=== PATIENT | female | born 1960 | race Caucasian/White ===

== ENCOUNTER 2016-06-09 18:38 | Emergency (ER) | payer OTHER ==
[~2016-06-09] VITALS: Ht 167.6 cm; Wt 74.8 kg
[~2016-06-09 18:38] MED LIST: ALBUTEROL 3 ML3 ML INH; ATIVAN0.5 MG PO; ATIVAN1 MG PO; BUSPAR5 MG PO; BUSPIRONE HCL15 MG PO; BUSPIRONE10 MG PO; CHLORDIAZEPOXID25 M2 PO; CHLORDIAZEPOXID25 MG PO; DOXEPIN 25 MG; DOXEPIN25 MG PO; LAMICTAL100 M1 PO; LAMICTAL150 MG PO; LAMICTAL200 MG PO; LIBRIUM25 MG PO; LORAZEPAM0.5 MG PO; MAGNESIUM250 M1 PO; MULTIVITAMIN1 TAB PO; NALTREXONE HCL50 MG; NALTREXONE HYDR50 MG PO; SEROQUEL 100MG100 MG PO; SEROQUEL 25MG25 MG PO; SEROQUEL50 MG PO; SIMVASTATIN10 MG PO; SIMVASTATIN20 MG PO; VITAMIN B121000 MCG PO
[2016-06-09 18:58] VITALS: BP 123/81
--- NOTE | 2016-06-09 19:41 | ED PSYCHIATRIC COMPLAINT ---
History of Present Illness General Chief Complaint: ETOH/Drug Related Complaint Stated Complaint: PT NEEDS DETOX FROM ALCOHOL Source: patient, old records Exam Limitations: no limitations Vital Signs & Intake/Output Vital Signs & Intake/Output Vital Signs Date Time Temp Pulse Resp B/P Pulse O2 O2 Flow FiO2 Ox Delivery Rate 06/09 1916 Room Air 06/09 1858 97.0 93 18 123/81 98 Room Air ED Intake and Output 06/10 0000 06/09 1200 Intake Total Output Total Balance Patient 165 lb Weight Allergies Coded Allergies: NO KNOWN ALLERGIES (02/09/14) Reconcile Medications BUSPIRONE HCL (Buspirone HCl) 5 MG TABLET 30 MG PO BID MENTAL HEALTH ( Reported) Chlordiazepoxide HCl 25 MG CAPSULE 0 PO SEE ADMIN CRITERIA PRN anxiety 1-2 tabs 3 times a day for 2 days 1-2 tabs 2 times a day for 2 days 1-2 tabs 1 time a day for 2 days DOXEPIN HCL (Doxepin HCl) 25 MG CAPSULE 2 CAP PO AT BEDTIME SLEEP (Reported) Lamotrigine (Lamictal) 150 MG TAB 1 TAB PO BID UNKNOWN (Reported) Lorazepam (Ativan) 0.5 MG TAB 1 TAB PO PRN ANXIETY (Reported) Lorazepam (Ativan) 1 MG TAB 1 TAB PO BID PRN ANXIETY TEN TABS... [id number] Lorazepam (Ativan) 1 MG TAB 1 TAB PO BID PRN ANXIETY Quetiapine Fumarate (Seroquel) 100 MG TAB 1 TAB PO QPM MENTAL HEALTH ( Reported) Triage Note: PT STATSE SHE HAS BEEN DRINKING AND SHE WOULD LIKE TO GET HER LIFE TOGETHER. PT STATES HER THERAPYST TOOK HER OFF ALL OF HER MEDS ALL AT ONCE AND SHE IS HAVING TROUBLE DEALING WITH EVERYTHING. PT REPORTS TRYING TO GET INTO PLACED FOR DETOX. PT WAS TAKEN OFF HER ATIVAN. Triage Nurses Notes Reviewed? yes Onset: Last week Duration: day(s):, constant, continues in ED, getting worse Timing: recent history Severity: moderate Associated Symptoms: anxiety, impaired concentration, insomnia LMP (ages 10-50): post menopausal : No Patient currently breastfeeds: No HPI: Patient reports increased stressors her significant other's illness and surgery over the last month causing her to abuse alcohol and missed therapist appointments so Ativan prescription refilled. She presents for alcohol detox. She denies fever chills nausea vomiting diarrhea abdominal pain chest pain shortness breath headache dysuria rash bleeding suicidal ideation homicidal ideation hallucination. Past History Travel History Traveled to [place] past 21 day No Medical History Any Pertinent Medical History? 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 No Review of Systems Review of Systems Constitutional: Reports: no symptoms. EENTM: Reports: no symptoms. Respiratory: Reports: no symptoms. Cardiovascular: Reports: no symptoms. GI: Reports: no symptoms. Genitourinary: Reports: no symptoms. Musculoskeletal: Reports: no symptoms. Skin: Reports: no symptoms. Neurological/Psychological: Reports: see HPI, anxiety, confusion, depressed, emotional problems. Hematologic/Endocrine: Reports: no symptoms. Immunologic/Allergic: Reports: no symptoms. All Other Systems: Reviewed and Negative Physical Exam Physical Exam General Appearance: well developed/nourished, mild distress Head: atraumatic Eyes: Bilateral: PERRL, EOMI. 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 patient not suicidal Progress Differential Diagnosis: drug intoxication, drug overdose, drug withdrawal, electrolyte abnormality, hypoglycemia Plan of Care: Orders Procedure Date/time Status URINE DRUG SCREEN FOR ER ONLY 06/09 1899 Complete Laboratory Tests 06/09/161909: Urine Opiates Screen < 100.00, Methadone Screen < 40, Barbiturate Screen < 60, Ur Phencyclidine Scrn < 6.00, Amphetamines Screen < 100, U Benzodiazepines Scrn < 85, Urine Cocaine Screen < 50, Urine Cannabis Screen < 5.00 Comments: After eating patient decided she does not want detox but needs to be home caring for her significant other. Departure Departure Time of Disposition: 1940 Disposition: HOME OR SELF CARE Condition: Stable Clinical Impression Primary Impression: Alcohol abuse Referrals: PATIENT HAS NO PRIMARY CARE DR (PCP/Family) Departure Forms: Customer Survey General Discharge Information Prescriptions: Current Visit Scripts Chlordiazepoxide HCl 0 PO SEE ADMIN CRITERIA PRN anxiety #24 CAP 1-2 tabs 3 times a day for 2 days 1-2 tabs 2 times a day for 2 days 1-2 tabs 1 time a day for 2 days
[2016-06-09] MEDS ORDERED: CHLORDIAZEPOXID25 M3 PO (19:43)
== END 2016-06-09 20:04 ==
LOC: ERH 18:38
DX: F10.10 Alcohol abuse, uncomplicated (principal)
CPT/HCPCS: 80307

== ENCOUNTER 2017-07-19 23:29 | Emergency (ER) | payer OTHER ==
[~2017-07-19] VITALS: Ht 167.6 cm; Wt 51.7 kg
[~2017-07-19 23:29] MED LIST changes: +ATIVAN1 M1 PO; +ATORVASTATIN CA40 M1 PO; +CHLORDIAZEPOXID25 M3 PO; +DOXYCYCLINE HY100 M2 PO; +HYDROCHLOROTH12.5 M2 PO; +LAMICTAL100 M2 PO; +LAMICTAL150 M1 PO; +NEURONTIN300 M1 PO; +QUETIAPINE FUMA25 M1 PO; +SEROQUEL50 M1 PO
--- NOTE | 2017-07-20 | ED PSYCHIATRIC COMPLAINT ---
History of Present Illness General Chief Complaint: ETOH/Drug Related Complaint Stated Complaint: BIBA ETOH Source: patient, old records, EMS Exam Limitations: no limitations Vital Signs & Intake/Output Vital Signs & Intake/Output Vital Signs Date Time Temp Pulse Resp B/P B/P Pulse O2 O2 Flow FiO2 Mean Ox Delivery Rate 07/20 0405 98.4 88 16 98/52 05/ 0405 98.4 88 16 98/52 94 Room Air / 0200 98.4 89 16 99/52 05/ 0200 98.4 89 16 98/50 95 Room Air / 0000 97.9 83 18 103/67 05/ 2341 97.9 83 18 103/67 97 ED Intake and Output 07/20 0000 07/19 1200 Intake Total Output Total Balance Patient 114 lb Weight Allergies Coded Allergies: NO KNOWN ALLERGIES (02/09/14) Reconcile Medications Atorvastatin Calcium 40 MG TABLET 1 TAB PO DAILY CHOLESTEROL (Reported) Gabapentin (Neurontin) 300 MG CAPSULE 1 CAP PO TID craving/etoh Hydrochlorothiazide 12.5 MG TABLET 1 TAB PO DAILY HTN (Reported) Lamotrigine (Lamictal) 100 MG TABLET 1 TAB PO BID mental health LORazepam (Ativan) 1 MG TAB 1 TAB PO QPM PRN ANXIETY LORazepam (Ativan) 1 MG TAB 1 TAB PO Q8PRN ANXIETY LORazepam (Ativan) 1 MG TAB 1 TAB PO BID PRN alcohol withdrawal Triage Nurses Notes Reviewed? yes Onset: Just prior to arrival Duration: constant, continues in ED Timing: recent history Severity: moderate Associated Symptoms: anxiety, impaired concentration LMP (ages 10-50): post menopausal : No Patient currently breastfeeds: No HPI: Patient presents for help with alcohol detox. She denies fever chills nausea vomiting diarrhea abdominal pain chest pain shortness breath headache dysuria rash bleeding suicidal ideation homicidal ideation hallucination. Past History Travel History Traveled to [place] past 21 day No Medical History Any Pertinent Medical History? 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 No Review of Systems Review of Systems Constitutional: Reports: no symptoms. EENTM: Reports: no symptoms. Respiratory: Reports: no symptoms. Cardiovascular: Reports: no symptoms. GI: Reports: no symptoms. Genitourinary: Reports: no symptoms. Musculoskeletal: Reports: no symptoms. Skin: Reports: no symptoms. Neurological/Psychological: Reports: see HPI, anxiety, confusion, emotional problems. Hematologic/Endocrine: Reports: no symptoms. Immunologic/Allergic: Reports: no symptoms. All Other Systems: Reviewed and Negative Physical Exam Physical Exam General Appearance: well developed/nourished, mild distress Head: atraumatic Eyes: Bilateral: PERRL, EOMI. Ears, Nose, Throat: normal pharynx, normal ENT inspection, hearing grossly normal Neck: normal inspection, supple Respiratory: normal breath sounds Cardiovascular: regular rate/rhythm Gastrointestinal: soft, non-tender Extremities: normal range of motion Neurological/Psychiatric: no motor/sensory deficits, awake, agitated, alert, normal mood/affect, anxious Appearance/Memory/Insight: appropriate appearance, appropriate insight, denies illness Behavoir/Eye Contact/Speech: cooperative, increased rate of speech Thoughts/Hallucinations: no apparent hallucination Skin: intact, normal color, warm/dry SAD PERSONS Done? patient not suicidal Progress Differential Diagnosis: drug intoxication, drug overdose, drug withdrawal, electrolyte abnormality, hypoglycemia Plan of Care: Orders Procedure Date/time Status Regular Diet 07/20 B Active CIWA 07/19 2350 Active URINE DRUG SCREEN FOR ER ONLY 07/19 2350 Complete ETHANOL 07/19 2350 Complete COMPREHENSIVE METABOLIC PANEL 07/19 2350 Complete CBC WITHOUT DIFFERENTIAL 07/19 2350 Complete Laboratory Tests 07/20/17 0010: Anion Gap 16, Estimated GFR > 60, BUN/Creatinine Ratio 17.1, Glucose 98, Calcium 9.6, Total Bilirubin 0.6, AST 45 H, ALT 69 H, Alkaline Phosphatase 107, Total Protein 7.7, Albumin 4.5, Globulin 3.2, Albumin/Globulin Ratio 1.4, CBC w Diff MAN DIFF ORDERED, RBC 4.39, MCV 99.0, MCH 35.1 H, MCHC 35.5, RDW 13.0, MPV 8.4, Gran % 60.0, Lymphocytes % 31.5, Monocytes % 6.2, Eosinophils % 1.6, Basophils % 0.7, Absolute Granulocytes 6.7 H, Segmented Neutrophils 57, Band Neutrophils 3, Absolute Lymphocytes 3.5 H, Lymphocytes 36, Monocytes 3, Absolute Monocytes 0.7 H, Eosinophils 1, Absolute Eosinophils 0.2, Absolute Basophils 0.1, Platelet Estimate ADEQUATE, Normocytic RBCs VERIFIED, Normochromic RBCs VERIFIED, Serum Alcohol 258.0 07/19/17 2357: Urine Opiates Screen < 100, Methadone Screen < 40, Barbiturate Screen < 60, Ur Phencyclidine Scrn < 6.00, Amphetamines Screen < 100, U Benzodiazepines Scrn < 85, Urine Cocaine Screen < 50, Urine Cannabis Screen < 5.00 Departure Departure Disposition: HOME OR SELF CARE Condition: Stable Clinical Impression Primary Impression: Alcohol dependence Secondary Impressions: Alcohol intoxication Referrals: Unknown (PCP/Family) Departure Forms: General Discharge Information Prescriptions: Current Visit Scripts Chlordiazepoxide HCl 0 PO SEE ADMIN CRITERIA PRN alcohol withdrawal #40 CAP 1-2 cap QID x 2D, 1-2 cap TID x 2D, 1-2 cap BID x 2D, 1-2 cap QD x2D
[2017-07-20 00:32] LABS: ABSOLUTE BASOPHIL COUNT 0.1 /CUMM (0.0-0.2); ABSOLUTE EOSINOPHIL COUNT 0.2 /CUMM (0.0-0.7); ABSOLUTE GRANULOCYTE CT 6.7 /CUMM (1.4-6.5); ABSOLUTE LYMPH COUNT 3.5 /CUMM (1.2-3.4); ABSOLUTE MONOCYTE COUNT 0.7 /CUMM (0.10-0.60); BASOPHIL % 0.7 % (0.0-2.0); EOSINOPHIL % 1.6 % (0-5); HEMATOCRIT 43.4 % (37-47); MEAN CORPUSCULAR HGB 35.1 PG (27.0-31.0); MEAN CORPUSCULAR HGB CONC 35.5 G/DL (33.0-37.0); MEAN PLATELET VOLUME 8.4 FL (7.4-10.4); PLATELET COUNT 263 /CUMM (130-400); RED BLOOD CELL CT 4.39 /CUMM (4.20-5.40); WHITE BLOOD CELL COUNT 11.2 /CUMM (4.8-10.8)
[2017-07-20] MEDS ORDERED: CHLORDIAZEPOXID25 M3 PO (05:41)
[2017-07-20 08:25] VITALS: BP 122/82
== END 2017-07-20 08:26 ==
LOC: ERH 23:29
PROVIDERS: Emergency Medicine
DX: F10.20 Alcohol dependence, uncomplicated (principal)
CPT/HCPCS: 80307; G0480; J3101

== ENCOUNTER 2017-10-12 21:13 | Observation (INO) | payer OTHER ==
[~2017-10-12] VITALS: Ht 167.6 cm; Wt 65.8 kg
[~2017-10-12 21:13] MED LIST changes: +ACAMPROSATE CA333 M1
[2017-10-12] MEDS ORDERED: CHLORDIAZEPOXID25 M3 PO (21:33)
--- NOTE | 2017-10-12 21:53 | ED PSYCHIATRIC COMPLAINT ---
See Addendum History of Present Illness General Chief Complaint: ETOH/Drug Related Complaint Stated Complaint: BIBA FOR EVAL ETOH Source: patient, old records, EMS Exam Limitations: no limitations Vital Signs & Intake/Output Vital Signs & Intake/Output Vital Signs Date Time Temp Pulse Resp B/P B/P Pulse O2 O2 Flow FiO2 Mean Ox Delivery Rate 10/13 0609 97.7 80 18 102/68 10/13 0535 97.7 80 18 102/68 10/13 0535 97.7 80 18 102/68 95 Room Air 10/13 0214 97.9 87 18 112/56 96 Room Air 10/13 0200 97.9 87 18 112/56 10/13 0025 98.0 92 18 115/70 10/13 0000 98.0 92 18 115/70 10/12 2222 98.0 92 18 11570 99 Room Air 10/12 2220 98.0 92 17 115/70 10/12 2140 98.1 93 17 152/74 99 Room Air ED Intake and Output 10/13 0000 10/12 1200 Intake Total 0 Output Total Balance 0 Intake, Oral 0 Patient 145 lb Weight Allergies Coded Allergies: NO KNOWN ALLERGIES (02/09/14) Triage Note: pt biba from [facility] FOR HEAVY ETOH USE TODAY. PT STATES SHE DRANK "ENOUGH". UNKNOWN HOW MUCH. AOX3. CALM & COOPERATIVE. DENIES SI/HI. SECURITY @ BS FOR WANDING Triage Nurses Notes Reviewed? yes Onset: Just prior to arrival Duration: hour(s):, constant, continues in ED Timing: recent history Severity: moderate Associated Symptoms: anxiety, impaired concentration LMP (ages 10-50): post menopausal : No Patient currently breastfeeds: No HPI: Prior to admission patient decided to seek alcohol detox feeling depressed and sad unsure of how to proceed with medications that have been prescribed in the past for detox. She reports not being able to follow-up secondary to fear of driving. She denies fever chills nausea vomiting diarrhea abdominal pain chest pain shortness breath headache dysuria rash bleeding suicidal ideation homicidal ideation hallucination/ (Divine AMARO,Francisco) Reconcile Medications Acamprosate Calcium (Unknown Strength) TABLET.DR (Unknown Dose) UNKNOWN ( Reported) Atorvastatin Calcium 40 MG TABLET 1 TAB PO DAILY CHOLESTEROL (Reported) Chlordiazepoxide HCl (Unknown Strength) CAPSULE (Unknown Dose) PO AD UNKNOWN (Reported) Hydrochlorothiazide 12.5 MG TABLET 1 TAB PO DAILY HTN (Reported) Lamotrigine (Lamictal) 100 MG TABLET 1 TAB PO BID mental health LORazepam (Ativan) 1 MG TAB 1 TAB PO TID PRN alcohol withdrawal sx ten...[id number] (Antonio AMARO,Erasmo Tay) Past History Travel History Traveled to [place] past 21 day No Medical History Any Pertinent Medical History? 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 No (Francisco Haskins MD) Review of Systems Review of Systems Constitutional: Reports: no symptoms. EENTM: Reports: no symptoms. Respiratory: Reports: no symptoms. Cardiovascular: Reports: no symptoms. GI: Reports: no symptoms. Genitourinary: Reports: no symptoms. Musculoskeletal: Reports: no symptoms. Skin: Reports: no symptoms. Neurological/Psychological: Reports: see HPI, depressed. Hematologic/Endocrine: Reports: no symptoms. Immunologic/Allergic: Reports: no symptoms. All Other Systems: Reviewed and Negative (Francisco Haskins MD) Physical Exam Physical Exam General Appearance: well developed/nourished, alert, awake, anxious, mild distress Head: atraumatic, normal appearance Eyes: Bilateral: normal appearance, PERRL, EOMI. 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 patient not suicidal (Divine AMARO,Francisco) Progress Differential Diagnosis: drug intoxication, drug overdose, drug withdrawal, electrolyte abnormality, hypoglycemia Plan of Care: Orders Procedure Date/time Status Regular Diet 10/13 B Active Discharge Patient 10/13 0745 Active Patient Safety Monitor 10/13 0540 Active ED CRISIS PSYCH CONSULT 10/13 0340 Active Patient Safety Monitor 10/[address] in observation 10/13 0017 Active Patient Data 10/13 16 Active Intake & Output 10/12 2336 Active Patient Safety Monitor 10/12 2144 Active CIWA 10/13 2143 Active URINE DRUG SCREEN FOR ER ONLY 10/13 2143 Active MAGNESIUM 10/13 2143 Complete ETHANOL 10/13 2143 Complete COMPREHENSIVE METABOLIC PANEL 10/13 2143 Complete CBC WITHOUT DIFFERENTIAL 10/13 2143 Complete Current Medications Sig/Brandon Start time Last Medication Dose Stop Time Status Admin Atorvastatin Calcium 40 MG DAILY 10/13 0900 AC (Lipitor) Hydrochlorothiazide 12.5 MG DAILY 10/13 0900 AC (Hydrodiuril) Lamotrigine 50 MG BID 10/13 0900 AC (LaMICtal) Clonidine 0.1 MG Q8 10/12 2200 AC 10/13 (Catapres) 06 Gabapentin 300 MG Q8 10/120 AC 10/13 (Neurontin) 06 Laboratory Tests 10/12/172204: Anion Gap 15, Estimated GFR > 60, BUN/Creatinine Ratio 15.0, Glucose 99, Calcium 9.3, Magnesium 1.8, Total Bilirubin 0.3, AST 76 H, ALT 95 H, Alkaline Phosphatase 113, Total Protein 7.4, Albumin 4.4, Globulin 3.0, Albumin/Globulin Ratio 1.5, CBC w Diff NO MAN DIFF REQ, RBC 4.37, MCV 101.0 H, MCH 35.3 H, MCHC 35.0, RDW 12.9, MPV 8.6, Gran % 58.2, Lymphocytes % 33.6, Monocytes % 5.7, Eosinophils % 1.9, Basophils % 0.6, Absolute Granulocytes 5.3, Absolute Lymphocytes 3.1, Absolute Monocytes 0.5, Absolute Eosinophils 0.2, Absolute Basophils 0.1, Serum Alcohol 261.0 Hand-Off Endorsed To: Erasmo Alvarez MD Endorsed Time: 0700 Pending: consult, other (JEREMIAH) (Francisco Haskins MD) Departure Departure Condition: Stable Clinical Impression Primary Impression: Alcohol dependence with intoxication and delirium Secondary Impressions: Depression Referrals: Unknown (PCP/Family) Departure Forms: Customer Survey General Discharge Information (Francisco Haskins MD) Departure Disposition: HOME OR SELF CARE Prescriptions: Current Visit Scripts LORazepam (Ativan) 1 TAB PO TID PRN alcohol withdrawal sx #10 TAB Ref 1 ten...[id number] (Erasmo Alvarez MD) ED Attending Observation Initial Observation Note: I have seen and personally examined LORIE HOFFMAN on 10/12/17 at 2230. I agree with the current emergency department documentation. The disposition (admission or discharge) is uncertain at this time, she needs a period of observation for the following reason(s): Alcohol dependence serial CIWA crisis evaluation for depression The ED Nurse caring for this patient has been personally informed as to what the patient is being observed for. (Francisco Haskins MD) Observation Discharge: I have reevaluated LORIE HOFFMAN on 10/13/17 at 0748. The patient is: (x): Stable for discharge (): To be admitted to Nursing Floor (): To be placed in Observation on Nursing Floor (): For transfer to other facility The patient was being observed for alcohol detox and crises eval... 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 she does not wish to stay for detox. she denies SI/HI. She feels comfortable going home. (Erasmo Alvarez MD)
[2017-10-12 22:19] LABS: ABSOLUTE BASOPHIL COUNT 0.1 /CUMM (0.0-0.2); ABSOLUTE EOSINOPHIL COUNT 0.2 /CUMM (0.0-0.7); ABSOLUTE GRANULOCYTE CT 5.3 /CUMM (1.4-6.5); ABSOLUTE LYMPH COUNT 3.1 /CUMM (1.2-3.4); ABSOLUTE MONOCYTE COUNT 0.5 /CUMM (0.10-0.60); BASOPHIL % 0.6 % (0.0-2.0); EOSINOPHIL % 1.9 % (0-5); GRANULOCYTE % 58.2 % (42.2-75.2); HEMATOCRIT 44.1 % (37-47); MEAN CORPUSCULAR HGB 35.3 PG (27.0-31.0); MEAN PLATELET VOLUME 8.6 FL (7.4-10.4); PLATELET COUNT 227 /CUMM (130-400); RBC DISTRIBUTION WIDTH 12.9 % (11.5-14.5); RED BLOOD CELL CT 4.37 /CUMM (4.20-5.40); WHITE BLOOD CELL COUNT 9.2 /CUMM (4.8-10.8)
[2017-10-13] VITALS: BP 115/70
[2017-10-13 02:00] VITALS: BP 112/56
[2017-10-13 05:35] VITALS: BP 102/68
[2017-10-13] MEDS ORDERED: ATIVAN1 M1 PO (07:44)
[2017-10-13 08:22] VITALS: BP 116/60
== END 2017-10-13 11:19 ==
LOC: ERH 21:13 → ERHI 10-13 00:17
PROVIDERS: Emergency Medicine
DX: F10.221 Alcohol dependence with intoxication delirium (principal); F41.9 Anxiety disorder, unspecified; F17.200 Nicotine dependence, unspecified, uncomplicated; E78.5 Hyperlipidemia, unspecified; J44.9 Chronic obstructive pulmonary disease, unspecified; F41.0 Panic disorder [episodic paroxysmal anxiety]; F32.9 Major depressive disorder, single episode, unspecified; Z79.899 Other long term (current) drug therapy
CPT/HCPCS: 6090; 80307; G0378; G0480; J3101